=== PATIENT | male | born 1995 | race Caucasian/White ===

== ENCOUNTER 2020-07-12 21:54 | Emergency (ER) | payer SELFPAY ==
[~2020-07-12] VITALS: Ht 175.3 cm; Wt 118.0 kg
[2020-07-12 22:33] VITALS: BP 153/93
[2020-07-13] MEDS ORDERED: BACITRACIN ZINC OINT UDPKT TOP ONE (01:00)
[2020-07-13] MEDS ORDERED: LIDOCAINE 1%/EPI 1:100,000 10 ML VIAL IJ ONE (01:00)
[2020-07-13] MEDS ORDERED: ACETAMINOPHEN 325MG TABLET PO ONE (01:00)
== END 2020-07-13 02:10 | disposition home or self-care (01) ==
LOC: ER 21:54
DX: S01.111A Laceration without foreign body of right eyelid and periocular area, initial encounter (principal); S00.83XA Contusion of other part of head, initial encounter; Y04.0XXA Assault by unarmed brawl or fight, initial encounter; Y93.89 Activity, other specified; Y92.018 Other place in single-family (private) house as the place of occurrence of the external cause
CPT/HCPCS: 12013; 99282; J3490

== ENCOUNTER 2020-07-20 00:22 | Emergency (ER) | payer SELFPAY ==
[~2020-07-20] VITALS: Ht 175.3 cm; Wt 127.0 kg
[2020-07-20 00:24] VITALS: BP 131/78
== END 2020-07-20 00:58 | disposition home or self-care (01) ==
LOC: ER 00:26
DX: Z48.02 Encounter for removal of sutures (principal)
CPT/HCPCS: 99281